=== PATIENT | female | born 1940 ===

== ENCOUNTER 2019-04-25 12:33 | Outpatient (CLI) | payer MEDICARE, MEDICAID ==
[~2019-04-25] VITALS: Ht 152.4 cm; Wt 114.3 kg
[2019-04-25] MEDS ORDERED: VENTOLIN HFA18 GM INH (13:05)
[2019-04-25] MEDS ORDERED: JANUVIA25 MG ORAL (13:05)
--- NOTE | 2019-04-25 13:07 | GI Initial Consult Note ---
History of Present Illness General Date patient seen: Apr 25, 2019 Time patient seen: 13:03 Referring physician: MARYLOU Reason for Consultation: EGD/COLONOSCOPY Present Illness HPI This is a 78-year-old female patient referred by Dr. Campbell for endoscopy and colonoscopy. The patient presents today symptomatically with a left lower quadrant abdominal pain. In addition, has complaint of GERD, constipation and pain after p.o. intake. Patient denies any rectal bleeding. The patient states her last colonoscopy was greater than 10 years ago and was noted at the time to have a colonic polyp. Patient's past medical history is significant for asthma, hemorrhoids, diabetes mellitus, hypertension. Past surgical history includes thyroidectomy, cholecystectomy. Denies any unintentional weight loss or changes in dietary habits. No signs of abuse or neglect. Patient is not fall risk. Home Meds Reported Medications Sitagliptin* (JANUVIA*) 25 Mg Tablet, 25 MG ORAL DAILY, TAB 04/25/19 Albuterol Sulfate (VENTOLIN HFA) 18 Gm Hfa.aer.ad, 1 PUFF INH EVERY 6 HOURS, # 18 GM 0 Refills 04/25/19 Med list reviewed/reconciled: Yes Allergies: Coded Allergies: No Known Allergies (Unverified , 04/25/19) Patient History History Provided By: Patient, Medical Record PMH Narrative See HPI Pertinent Family History: none Social History: Denies: smoking, alcohol use, drug use, other Review of Systems All Other Systems: negative except mentioned in HPI Physical Exam Temperature 96.8 Blood pressure 142/98 Pulse 97 91% room air Height is 5 foot 0 inches Weight is 252 pounds Sp02 EP Interpretation: reviewed, normal General Appearance: well appearing, no apparent distress, alert Head: normocephalic EENT: PERRL/EOMI, normal ENT inspection Neck: supple Respiratory: normal breath sounds, no respiratory distress Cardiovascular: normal rate Gastrointestinal: normal inspection, non tender, soft, normal bowel sounds, non -distended Rectal: deferred Genitourinary: no CVA tenderness Musculoskeletal: normal inspection, back normal Neurologic: normal inspection, alert, oriented x3, responsive Psychiatric: normal inspection, judgement/insight normal, memory normal Skin: normal inspection, normal color, no rash, warm/dry, palpation normal, well hydrated Lymphatic: normal inspection, no adenopathy GI: Plan Problems: (1) Abdominal pain (2) GERD (gastroesophageal reflux disease) (3) Hemorrhoid (4) Diabetes (5) Asthma (6) Hypertension (7) Constipation (8) Colonoscopy planned Plan EGD/colonoscopy to be scheduled. - CLD & (Nulytely/Suprep/Movi-Prep) prep instructions given and acknowledged by patient. - NPO @ AL day prior procedure explained. Will follow with additional recs post procedure. Seen with Dr. Lockhart. Thank you for this patient referral. The patient was seen and examined at bedside and all new and available data was reviewed in the patients chart. I agree with the above findings, impression and plan. (Patient seen earlier today. Signature stamp does not reflect patient encounter time.). - MD Ninfa Douglas,[facility] Apr 25, 2019 13:07
[2019-04-25 13:16] VITALS: BP 142/92
[2019-04-25] MEDS ORDERED: UNOBMED (13:16)
== END 2019-04-25 14:33 | disposition home or self-care (01) ==
LOC: PAN 12:33
DX: R10.32 Left lower quadrant pain (principal); K21.9 Gastro-esophageal reflux disease without esophagitis; K64.9 Unspecified hemorrhoids; E11.9 Type 2 diabetes mellitus without complications; J45.909 Unspecified asthma, uncomplicated; I10 Essential (primary) hypertension; K59.00 Constipation, unspecified; Z90.49 Acquired absence of other specified parts of digestive tract; Z88.8 Allergy status to other drugs, medicaments and biological substances
CPT/HCPCS: 99202

== ENCOUNTER 2019-04-29 09:03 | Day surgery (SDC) | payer MEDICARE, MEDICAID ==
[2019-04-29] VITALS (7 sets, daily range): BP systolic 111–143; BP diastolic 64–77
[~2019-04-29] VITALS: Ht 162.6 cm; Wt 114.3 kg
--- NOTE | 2019-04-29 06:37 | Anethesia Preoperative Eval ---
Anesthesia Pre-op PMH/ROS General Date of Evaluation: Apr 29, 2019 Time of Evaluation: 06:35 Anesthesiologist: meghan ASA Score: ASA 4 Mallampati Score Class I : Soft palate, uvula, fauces, pillars visible Class II: Soft palate, uvula, fauces visible Class III: Soft palate, base of uvula visible Class IV: Only hard plate visible Mallampati Classification: Class II Surgeon: carina Diagnosis: history of colon polyps Surgical Procedure: colonoscopy Anesthesia History: none Social History: current smoker Family History: no anesthesia problems Allergies: Coded Allergies: No Known Allergies (Unverified , 04/25/19) Medications: see eMAR Patient NPO?: Yes Past Medical History Cardiovascular: Reports: HTN Pulmonary: Reports: asthma Gastrointestinal/Genitourinary: Reports: GERD, other - constipation, hemorrhoids Endocrine: Reports: DM Other: obesity PSxH Narrative: eye sx, throat sx, cholecystectomy, Anesthesia Pre-op Phys. Exam Physician Exam Last Vital Signs Date Time Temp Pulse Resp B/P (MAP) Pulse Ox O2 Delivery O2 Flow Rate FiO2 04/29/19 10:25 Room Air 04/29/19 10:10 97.6 90 14 143/70 95 Constitutional: NAD Neurologic: CN 2-12 intact Cardiovascular: RRR Respiratory: CTA Gastrointestinal: S/NT/ND Airway Exam Mallampati Score: Class II MO: limited Neck: short TMD: 2fb ROM: limited Anesthesia Pre-op A/P Studies Pre-op Studies: EKG - nsr, lad Risk Assessment & Plan Assessment: asa4 Plan: mac Status Change Before Surgery: No Pre-Antibiotics Drug: Catherine Wall MD Apr 29, 2019 06:37
[~2019-04-29 09:03] MED LIST: Atropine Inj 1mg/10ml Syr IV PRN; DiphenhydrAMINE 50mg/ml Inj IVP PRN; JANUVIA25 MG ORAL; Midazolam 2mg/2ml Inj IVP PRN; UNOBMED; VENTOLIN HFA18 GM INH; fentaNYL 100 mcg/2 mL IV PRN
--- NOTE | 2019-04-29 09:38 | Pre-Procedure Note/Attestation ---
Pre-Procedure Note/Attestation Complete Prior to Procedure Procedure Narrative: colonoscopy Indications for Procedure Pre-Operative Diagnosis: h/o colon polyps Attestation I attest that I discussed the nature of the procedure; its benefits; risks and complications; and alternatives (and the risks and benefits of such alternatives ), prior to the procedure, with the patient (or the patient's legal used equipment sales representative). I attest that, if there was a reasonable possibility of needing a blood transfusion, the patient (or the patient's legal used equipment sales representative) was given the [facility] standardized written summary, pursuant to the Anand Brendan Blood Safety Act ([place] Health and Safety Code # 1645, as amended). I attest that I re-evaluated the patient just prior to the surgery and that there has been no change in the patient's H&P, except as documented below: Yoni Lockhart MD Apr 29, 2019 09:38
--- NOTE | 2019-04-29 09:39 | Short Stay Surgery H&P ---
History of Present Illness History of Present Illness Chief Complaint see office note HPI Janet Benjamin is a 78 year old female who was admitted on for Hx Of Polyps Patient History Allergies: Coded Allergies: No Known Allergies (Unverified , 04/25/19) Medication History Scheduled Albuterol Sulfate (Ventolin Hfa), 1 PUFF INH EVERY 6 HOURS, (Reported) Sitagliptin* (Januvia*), 25 MG ORAL DAILY, (Reported) Miscellaneous Medications Unable to Obtain Medications (Unable To Obtain Meds), (Reported) Plan Attestation Are the patient's medical conditions optimized for surgery? Yoni Lockhart MD Apr 29, 2019 09:39
[2019-04-29] MEDS ORDERED: JANUVIA100 MG ORAL (10:22)
[2019-04-29] MEDS ORDERED: GLIPIZIDE10 MG PO (10:22)
[2019-04-29] MEDS ORDERED: AMLODIPINE BESY10 MG ORAL (10:22)
[2019-04-29] MEDS ORDERED: FARXIGA10 MG PO (10:22)
[2019-04-29] MEDS ORDERED: METOPROLOL SUCC50 MG ORAL (10:22)
[2019-04-29] MEDS ORDERED: METFORMIN HCL500 M1 ORAL (10:22)
[2019-04-29] MEDS ORDERED: Lidocaine 1% MPF 10mg/ml 5ml ONE (11:00)
[2019-04-29] MEDS ORDERED: Propofol 200mg/20ml IV ONE (11:00)
--- NOTE | 2019-04-29 11:45 | Endoscopy Procedure Note ---
Endoscopy Procedure Note General Indication for Procedure: colon polyps Procedures Performed: colonoscopy Operative Findings/Diagnosis: 11 polyps Specimen: yes Pt Tolerated Procedure Well: Yes Estimated Blood Loss: none Anesthesia Anesthesiologist: breanna Anesthesia: MAC Inserted Devices Implant(s) used?: No Quality Quality of Bowel Preparation: Good Did scope reach the cecum?: Yes Was there any complications?: No GI Core Measures 50 yrs or older w/o bx or poly: No 10yrs. F/U recommended: Yes If not recommended, why?: Above average risk 18 years or older w/prev. colo: Yes <3yrs. since last colonoscopy: No Yoni Lockhart MD Apr 29, 2019 11:45
--- NOTE | 2019-04-29 12:19 | Immediate Post-Op Evaluation ---
Immediate Post-Op Evalulation Immediate Post-Op Evalulation Procedure: colonoscopy w/bx Date of Evaluation: Apr 29, 2019 Time of Evaluation: 12:07 IV Fluids: 650ml 0.9ns Blood Products: none Estimated Blood Loss: negligible Blood Pressure Systolic: 139 Blood Pressure Diastolic: 71 Pulse Rate: 84 Respiratory Rate: 18 O2 Sat by Pulse Oximetry: 97 Temperature (Fahrenheit): 97.2 Pain Score (1-10): 0 Nausea: No Vomiting: No Complications none Patient Status: awake, reacts, patent Hydration Status: adequate Drug: Catherine Wall MD Apr 29, 2019 12:19
--- NOTE | 2019-04-29 12:20 | 48 Hour Post Anesthesia Eval ---
Post Anesthesia Evaluation Procedure: colonoscopy w/bx Date of Evaluation: Apr 29, 2019 Time of Evaluation: 12:09 Blood Pressure Systolic: 140 0: 70 Pulse Rate: 84 Respiratory Rate: 18 Temperature (Fahrenheit): 97.2 O2 Sat by Pulse Oximetry: 97 Airway: patent Nausea: No Vomiting: No Pain Intensity: 0 Hydration Status: adequate Cardiopulmonary Status: stable Mental Status/LOC: patient returned to baseline Post-Anesthesia Complications: none Follow-up care needed: N/A Catherine Alvarado MD Apr 29, 2019 12:20
--- NOTE | 2019-04-29 17:00 | Procedure Note ---
DATE OF PROCEDURE: 04/29/2019 SURGEON: Yoni Lockhart M.D. PROCEDURE: Colonoscopy with snare polypectomy and biopsy. ANESTHESIA: Per Dr. Chandler. INSTRUMENT: Olympus adult flexible colonoscope. INDICATION: History of colonic polyps, referred for repeat colonoscopy. REASON FOR PROCEDURE: The procedure, risks, benefits, and possible consequences, including hemorrhage, aspiration, perforation and infection, and alternative treatments, were explained to the patient/legal guardian by Dr. Yoni Lockhart and the patient/legal guardian understood and accepted these risks. PROCEDURE IN DETAIL: After informed consent was obtained and the patient was adequately sedated, first rectal exam was performed, which was positive for internal and external hemorrhoids. Then, the scope was advanced from the rectum into the cecum documented by appendiceal orifice, ileocecal valve, and right upper quadrant palpation. Quality of prep was good. The patient had total of 11 polyps in this colonoscopy examination. Ten of them removed with cold biopsy and one with the cold snare. There were six in the transverse colon, removed with the cold biopsy; three in the descending colon, one removed with a snare and two in the sigmoid colon removed with cold biopsy. The patient also has evidence of diverticulosis in the left colon. The patient had evidence of internal hemorrhoids. The patient tolerated procedure very well without complication. SUMMARY OF FINDINGS: 1. Total of 11 polyps removed. See above for details. 2. Internal hemorrhoids. 3. Diverticulosis. RECOMMENDATIONS: 1. Follow path. 2. We recommend repeat colonoscopy in one year. Yoni Lockhart M.D. DR: CALVIN JOB#: [id number] CC:
--- NOTE | 2019-05-03 18:12 | Cardiology Report ---
APPROVED REPORT EKG Measurement Heart [id number] CO 150P47 [id number] Normal sinus rhythm Left axis deviation Abnormal ECG
== END 2019-04-29 13:40 | disposition home or self-care (01) ==
LOC: GAS 09:03
DX: K63.5 Polyp of colon (principal); K64.8 Other hemorrhoids; K57.90 Diverticulosis of intestine, part unspecified, without perforation or abscess without bleeding; K64.4 Residual hemorrhoidal skin tags; Z86.010 Personal history of colon polyps; Z79.899 Other long term (current) drug therapy; F17.200 Nicotine dependence, unspecified, uncomplicated; I10 Essential (primary) hypertension; K21.9 Gastro-esophageal reflux disease without esophagitis; E11.9 Type 2 diabetes mellitus without complications; Z90.49 Acquired absence of other specified parts of digestive tract; D12.4 Benign neoplasm of descending colon; D12.3 Benign neoplasm of transverse colon
CPT/HCPCS: 45380; 45385; 82962; 93005; J2704; 94003; 94150